=== PATIENT | male | born 1960 | race Caucasian/White ===

== ENCOUNTER → 2017-09-29 | Outpatient (REF) | payer BC | LOC: M SMT 17:41 | DX: R97.20 Elevated prostate specific antigen [PSA] (principal) | CPT/HCPCS: 87086 ==

== ENCOUNTER → 2017-10-11 | Outpatient (CLI) | payer BC | LOC: M SMT PRO 08:41 | DX: C61 Malignant neoplasm of prostate (principal) | CPT/HCPCS: G0416 ==

== ENCOUNTER → 2017-11-03 | Outpatient (CLI) | payer BC | LOC: M ONCR 08:53 | DX: C61 Malignant neoplasm of prostate (principal) ==

== ENCOUNTER → 2017-11-22 | Outpatient (CLI) | payer BC | LOC: M SMT PRO 09:30 | DX: C61 Malignant neoplasm of prostate (principal) | CPT/HCPCS: A4648 ==

== ENCOUNTER → 2017-12-02 | Outpatient (CLI) | payer BC ==
[~2017-12-02] MED LIST: GASTROGRAFIN SOLUTION 30ML (Q9963) As Ordered; ISOVUE-370 76% 100ML VIAL (Q9967) As Ordered
== END ==
LOC: M RAD 09:18
DX: C61 Malignant neoplasm of prostate (principal)
CPT/HCPCS: Q9963

== ENCOUNTER 2017-12-06 09:42 | Outpatient (RCR) | payer BC ==
[2017-12-06 11:25] LABS: HEMATOCRIT 43.5 % (42.0-52.0); MEAN CORPUSCULAR HGB CONC 34.5 g/dl (32.0-36.5); PLATELET COUNT, AUTOMATED 241 10^3/uL (150-450); RED BLOOD COUNT 5.18 10^6/uL (4.30-6.10); WHITE BLOOD COUNT 9.5 10^3/uL (4.0-10.0)
== END 2017-12-30 ==
LOC: M ONCR 09:42
DX: C61 Malignant neoplasm of prostate (principal)
CPT/HCPCS: 77300

== ENCOUNTER 2018-01-03 09:26 | Outpatient (RCR) | payer BC | END 2018-01-29 | LOC: M ONCR 09:26 | DX: C61 Malignant neoplasm of prostate (principal) | CPT/HCPCS: 77300 ==

== ENCOUNTER 2018-01-30 14:39 | Outpatient (RCR) | payer BC | END 2018-03-01 | LOC: M ONCR 01-31 14:40 | DX: C61 Malignant neoplasm of prostate (principal) | CPT/HCPCS: 77336 ==

== ENCOUNTER → 2018-03-29 | Outpatient (CLI) | payer BC | LOC: M ONCR 13:36 | DX: C61 Malignant neoplasm of prostate (principal) | CPT/HCPCS: G0463 ==

== ENCOUNTER → 2018-06-16 | Outpatient (CLI) | payer BC | LOC: M SMT 15:44 | PROVIDERS: ATTEND Urology | DX: C61 Malignant neoplasm of prostate (principal) ==

== ENCOUNTER → 2018-09-13 | Outpatient (CLI) | payer BC ==
--- NOTE | 2018-09-14 08:23 | RADONC ---
RADIATION ONCOLOGY FOLLOWUP NOTE DATE: 09/13/2018 CHART NUMBER: [id number] DIAGNOSIS: Prostate cancer. STAGE: I, [id number]. ECOG PERFORMANCE STATUS: 0 FOLLOWUP NOTE: Mr. Soliz is a 57-year-old man with a diagnosis of stage I, [id number], moderately differentiated Olga score 6 (3+3) adenocarcinoma of the prostate with PSA level of 6.9. He presents today for a followup visit now several months status post completion of his radiotherapy (his last date of radiotherapy was on 02/13/2018). REVIEW OF SYSTEMS: He specifically denies any nausea, vomiting, diarrhea, dysuria, hematuria or blood per rectum. His energy level is excellent and he is able to maintain most of his day-to-day activities without any alteration of his lifestyle. Skin irritation is not reported. He also denies any bone pain, fevers, chills, night sweats, diplopia, headaches, anxiety or depression, anorexia, weight loss, visual disturbances, chest pain, urinary or bowel problems. EXAMINATION FINDINGS: The patient is a well-developed, well-nourished male, in no acute distress. HEENT: Normocephalic. EOMs intact. PERRLA. Fundi benign. Lymphatics: No palpable peripheral lymphadenopathy. Lungs: Clear to auscultation and percussion. Heart: Regular without murmurs. Abdomen: Without evidence of hepatomegaly, masses, deep abdominal tenderness. Extremities: Without cyanosis, clubbing or edema. Neurologic: Examination physiologic and nonfocal. IMPRESSION: Clinically CINTHYA at this time. We note that his most recent PSA, which was obtained recently, revealed a level of 1.47, which is down from 3.08. His 3.08 level was collected on 03/24/2018 and most recently the sample, which revealed a PSA of 1.47, was collected on 09/11/2018. We would like to see him again in 6 months and he was instructed to return to his referring physician physicians as per their directions. cc: MD Franci Donovan MD
== END ==
LOC: M ONCR 13:31
PROVIDERS: ATTEND Radiology Radiation Oncology
DX: Z85.46 Personal history of malignant neoplasm of prostate (principal); Z92.3 Personal history of irradiation

== ENCOUNTER → 2019-01-02 | Outpatient (CLI) | payer BC | LOC: M SMT 15:03 | PROVIDERS: ATTEND Urology | DX: C61 Malignant neoplasm of prostate (principal) ==

== ENCOUNTER → 2019-02-28 | Outpatient (CLI) | payer BC ==
--- NOTE | 2019-03-01 08:41 | RADONC ---
RADIATION ONCOLOGY FOLLOWUP NOTE DATE: 02/28/2019 CHART NUMBER: [id number] DIAGNOSIS: Prostate cancer STAGE: I, [id number] ECOG PERFORMANCE STATUS: 0. FOLLOWUP NOTE: Mr. Soliz is a very pleasant 58-year-old white male with the diagnosis of a stage I, [id number], moderately differentiated Sawyer score 6 (3-3) adenocarcinoma of prostate with an initial PSA level of 6.9 who is presenting to us today for routine followup visit 1 year post completion of external beam radiation therapy. The patient presents today reporting that he is doing quite well with no complaints at this time related to his radiation therapy or disease. He has no urinary or bowel difficulties and no bone pain. The patient's review of systems is noncontributory. He denies nausea, vomiting, fevers, chills, night sweats, diplopia, headaches, anxiety or depression, anorexia, weight loss, visual disturbances, chest pain, urinary or bowel difficulties, bone pain, or neurological problems. PHYSICAL EXAMINATION: The patient is a well-developed, well-nourished male in no acute distress. HEENT exam is normocephalic, atraumatic. Extraocular movements are intact. There is no palpable cervical, supraclavicular, infraclavicular, axillary, or inguinal lymphadenopathy present. Lungs are clear to auscultation and percussion. Heart has a regular rate and rhythm. Abdomen is benign with no hepatosplenomegaly, masses, or tenderness. Rectal examination reveals a normal anal sphincter tone. His prostate is smooth with no evidence of nodularity. Skeletal examination reveals no tenderness to pressure or percussion of the bony skeleton. Extremities reveal no clubbing, cyanosis, or edema. Neurologic exam is grossly intact as is the remainder of the physical examination. ASSESSMENT: The patient is clinically CINTHYA at this time and is being discharged from our followup except on an as needed basis. He is continuing his close followup with his urologist, Dr. Rudy Madera MD. cc: MD Franci Donovan MD
== END ==
LOC: M ONCR 14:33
PROVIDERS: ATTEND Radiology Radiation Oncology
DX: C61 Malignant neoplasm of prostate (principal)